=== PATIENT | male | born 1965 | race Caucasian/White ===

== ENCOUNTER 2019-04-24 07:14 | Inpatient (IN) | payer OTHER ==
[~2019-04-24] VITALS: Ht 170.2 cm; Wt 106.1 kg
[2019-04-24] MEDS ORDERED: COZAAR100 MG (07:32)
[2019-04-24] MEDS ORDERED: LISINOPRIL5 MG (07:32)
[2019-04-24] MEDS ORDERED: TAMS0.4C (07:33)
[2019-04-24] MEDS ORDERED: HYDROCHLOROTHIA25 MG (07:33)
[2019-04-24] MEDS ORDERED: GLIMEPIRIDE2 MG (07:33)
[2019-04-24] MEDS ORDERED: FOLIC ACID1 MG (07:34)
[2019-04-24] MEDS ORDERED: PENTOXIFYLLINE400 MG (07:34)
[2019-04-24] MEDS ORDERED: FUROSEMIDE20 MG (07:34)
[2019-04-24] MEDS ORDERED: METFORMIN HCL500 MG (07:34)
[2019-04-24] MEDS ORDERED: FEROSUL PO (07:35)
--- NOTE | 2019-04-24 07:36 | NUR ---
SE RECIBE AL PACIENTE ORIENTADO Y ALERTA EN GRETCHEN MICHELLE ESFERAS. PACIENTE REFIERE QUE VIENE POR REFERIDO MEDICO DEL INTERNISTA SYED CARPENTER MD. (NEPHROLOGY). PACIENTE REFIERE QUE VIENE PARA SER HOSPITALIZADO POR FALLO RENAL.
--- NOTE | 2019-04-24 08:50 | NUR ---
SE EDUCA A PTE SOBRE PROCEDIMIENTO A REALIZAR. RN. Isabella MELCHOR CANALIZA A PTE CON ANGIO#18 EN ANTEBRAZO L+ Y REALIZA MUESTRAS DE LABORATORIO BAJO MEDIDAS ASEPTICAS. PTE RECIBIENDO IV FLUIDS. SE MANTIENE EN OBSERVACION POR POSIBLES CAMBIOS.
--- NOTE | 2019-04-24 09:21 | NUR ---
TOMADA MUESTRA DE TUBO GIGI SOLICITANDO 2 UNIDADES DE PRBC PARA MANTENERSE EN HOLD.
[2019-04-24] MEDS ORDERED: FERROUS SULFAT325 MG PO (16:54)
[2019-05-21] MEDS ORDERED: METOPROLOL TAR100 MG PO (11:45)
[2019-05-21] MEDS ORDERED: HYDRALAZINE HCL50 MG PO (11:45)
== END 2019-05-21 14:11 | disposition home or self-care (01) | DRG 693 ==
LOC: ER 07:14 → ICU 14:10 → MEDJ 14:10 → SEC-K 14:10 → MEDJ 14:50 → ICU 05-01 21:21 → MEDJ 05-03 14:17
PROVIDERS: ADMIT Internal Medicine
PROC: 4A033R1 Measurement of Arterial Saturation, Peripheral, Percutaneous Approach (ICD-10-PCS; 2019-04-24)
PROC: 3E0F7GC Introduction of Other Therapeutic Substance into Respiratory Tract, Via Natural or Artificial Opening (ICD-10-PCS; 2019-04-24)
PROC: 0T9B70Z Drainage of Bladder with Drainage Device, Via Natural or Artificial Opening (ICD-10-PCS; 2019-04-24)
PROC: BW40ZZZ Ultrasonography of Abdomen (ICD-10-PCS; 2019-04-24)
PROC: B246ZZZ Ultrasonography of Right and Left Heart (ICD-10-PCS; 2019-04-24)
PROC: 30233N1 Transfusion of Nonautologous Red Blood Cells into Peripheral Vein, Percutaneous Approach (ICD-10-PCS; 2019-04-29)
PROC: 5A09457 Assistance with Respiratory Ventilation, 24-96 Consecutive Hours, Continuous Positive Airway Pressure (ICD-10-PCS; 2019-04-30)
PROC: BT4JZZZ Ultrasonography of Kidneys and Bladder (ICD-10-PCS; 2019-05-02)
PROC: BW21ZZZ Computerized Tomography (CT Scan) of Abdomen and Pelvis (ICD-10-PCS; 2019-05-03)
PROC: CT1 Nuclear Medicine, Urinary System, Planar Nuclear Medicine Imaging (ICD-10-PCS; 2019-05-04)
PROC: 0T9130Z Drainage of Left Kidney with Drainage Device, Percutaneous Approach (ICD-10-PCS; principal; 2019-05-05)
PROC: 0T9030Z Drainage of Right Kidney with Drainage Device, Percutaneous Approach (ICD-10-PCS; 2019-05-05)
DX: N13.2 Hydronephrosis with renal and ureteral calculous obstruction (principal); J96.02 Acute respiratory failure with hypercapnia; J96.01 Acute respiratory failure with hypoxia; E87.4 Mixed disorder of acid-base balance; E87.0 Hyperosmolality and hypernatremia; T81.42XA Infection following a procedure, deep incisional surgical site, initial encounter; N13.8 Other obstructive and reflux uropathy; R31.0 Gross hematuria; E87.5 Hyperkalemia; A49.01 Methicillin susceptible Staphylococcus aureus infection, unspecified site; N17.8 Other acute kidney failure; N40.1 Benign prostatic hyperplasia with lower urinary tract symptoms; E78.00 Pure hypercholesterolemia, unspecified; E11.22 Type 2 diabetes mellitus with diabetic chronic kidney disease; N18.4 Chronic kidney disease, stage 4 (severe); I12.9 Hypertensive chronic kidney disease with stage 1 through stage 4 chronic kidney disease, or unspecified chronic kidney disease; D63.1 Anemia in chronic kidney disease; E11.65 Type 2 diabetes mellitus with hyperglycemia; I08.1 Rheumatic disorders of both mitral and tricuspid valves; G47.33 Obstructive sleep apnea (adult) (pediatric); Z79.4 Long term (current) use of insulin; Z99.81 Dependence on supplemental oxygen; Z88.0 Allergy status to penicillin

== ENCOUNTER 2020-08-18 14:44 | Inpatient (IN) | payer OTHER ==
[~2020-08-18] VITALS: Ht 182.9 cm; Wt 104.3 kg
[~2020-08-18 14:44] MED LIST: COZAAR100 MG; FEROSUL PO; FERROUS SULFAT325 MG PO; FOLIC ACID1 MG; FUROSEMIDE20 MG; GLIMEPIRIDE2 MG; HYDRALAZINE HCL50 MG PO; HYDROCHLOROTHIA25 MG; LISINOPRIL5 MG; METFORMIN HCL500 MG; METOPROLOL TAR100 MG PO; PENTOXIFYLLINE400 MG; TAMS0.4C
--- NOTE | 2020-08-18 16:01 | NUR ---
SE RECIBE PACIENTE ALERTA, ORIENTADO X 3 ESFERAS REFIERE VENIR POR SATURACION EN 80, PACIENTE COVID POSITIVO, PRESENTA TOS CONSTANTES PRODUCTIVA. SE ESTIMAN SIGNOS S/V SAT.OXI. 93 %, DEXTROS 367. SE UBICA EN AREA SECCION K SE NOTIFICA .
--- NOTE | 2020-08-18 16:45 | NUR ---
PTE ES EVALUADO POR DR. JONES QUIEN ORDENA TRATAMIENTO. RN. Issac LUONG EDUCA A PTE SOBRE ORDENES MEDICAS Y REFIERE COMPRENDER. CANALIZA Y COLECTAN MUESTRAS DE LABORATORIO BAJO MEDIDAS ASEPTICAS. SE NOTIFICAN ABG'S A MS. CHACON. SE MANTIENE BAJO OBSERVACION POR CAMBIOS EN CONDICION.
== END 2020-08-24 18:25 | disposition home or self-care (01) | DRG 177 ==
LOC: ER 14:44 → MEDJ 21:45
PROVIDERS: ADMIT Internal Medicine; ATTEND Internal Medicine
PROC: 8E0ZXY6 Isolation (ICD-10-PCS; principal; 2020-08-18)
PROC: BB24ZZZ Computerized Tomography (CT Scan) of Bilateral Lungs (ICD-10-PCS; 2020-08-18)
PROC: 3E0F7GC Introduction of Other Therapeutic Substance into Respiratory Tract, Via Natural or Artificial Opening (ICD-10-PCS; 2020-08-18)
PROC: 4A033R1 Measurement of Arterial Saturation, Peripheral, Percutaneous Approach (ICD-10-PCS; 2020-08-18)
PROC: 4A12X4Z Monitoring of Cardiac Electrical Activity, External Approach (ICD-10-PCS; 2020-08-19)
PROC: BT43ZZZ Ultrasonography of Bilateral Kidneys (ICD-10-PCS; 2020-08-20)
DX: U07.1 COVID-19 (principal); J12.89 Other viral pneumonia; N17.8 Other acute kidney failure; G47.33 Obstructive sleep apnea (adult) (pediatric); E78.00 Pure hypercholesterolemia, unspecified; N40.0 Benign prostatic hyperplasia without lower urinary tract symptoms; E11.65 Type 2 diabetes mellitus with hyperglycemia; I13.10 Hypertensive heart and chronic kidney disease without heart failure, with stage 1 through stage 4 chronic kidney disease, or unspecified chronic kidney disease; N18.9 Chronic kidney disease, unspecified

== ENCOUNTER 2023-01-19 09:59 | Outpatient (CLI) | payer OTHER | END 2023-01-19 10:08 | disposition home or self-care (01) | LOC: RAD 09:59 | PROVIDERS: ATTEND Physical Medicine & Rehabilitation Sports Medicine | DX: M17.0 Bilateral primary osteoarthritis of knee (principal) ==